=== PATIENT | male | born 1940 | race American Indian/Alaskan Native ===

== ENCOUNTER 2022-01-18 11:27 | Emergency (ER) | payer MEDICARE ==
--- NOTE | 2022-01-18 13:39 | Emergency Department Report ---
HPI - General Chief Complaint: Syncope PUI?: No Time Seen by Provider: 01/18/22 13:32 - HPI HPI: 81-year-old male with a history of dementia, hypertension, hyperlipidemia, brought in by EMS at the request of the patient's daughter for evaluation of syncope. The patient's daughter states that on July 26, 2021, he had the exact same symptoms and was taken to [facility] where he was diagnosed with "seizures." She states that on today, he was with his caregiver. She was not present and did not witness the activities that were shared with her by the caregiver. She states that the caregiver reports that at 9 AM she checked the patient's blood pressure and it was 77/49mmhg. she states that the patient had been at the breakfast table eating his food and then was subsequently given his medications to take. When the patient was given medications, he passed out and became unresponsive and had "gurgling" in his mouth, with no witnessed generalized tonic-clonic seizure movements or any other seizure-like activity. The patient did not patient did not have any fecal or urinary incontinence but in his prior episode on July 26, he had urinary incontinence. Per her report, the aide felt that the patient was not breathing and was advised to start chest compressions by EMS. Chest compressions were not started but EMS personnel arrived and the patient had return to become responsive again and had no rec urrent loss of consciousness. She states that the patient is followed up [facility] [place] and his primary care doctor has put in a referral for the patient to be seen by [facility]'s neurology department. He has a scheduled first-time neurology appointment to evaluate if he has underlying seizures, on January 26, 2022. He is currently taking Keppra 750 mg by mouth twice a day and this was prescribed while he was at [facility] and this medication was not changed or discontinued on follow-up by his primary care doctor. The patient was recently started on sertraline approximately 2 days ago for "behavioral problems." . He also had been seen by a court usher at the [facility] and subsequently had a Holter monitor placed on him in December 2021. She states she received a call from his court usher, , this morning, and was informed that the patient was found to have "2% extra heartbeats" but they did not find any blockages or any life-threatening issues going on." No cough or recent URI symptoms, no changes in mental status, no vomiting or diarrhea. She states that his blood pressure is checked multiple times a day and it is typically "normal." No prior history of hypotension. No recent changes in his blood pressure medication. The patient himself denies any symptoms at this time. Pain 0-10. ED Past Medical Hx - Past Medical History Previous Medical History?: Yes Hx Hypertension: Yes Hx Seizures: Yes Additional medical history: dementia - Social History Smoking Status: Never Smoker Substance Use Type: None ED Review of Systems ROS: Stated complaint: SYNCOPE,BRADYCARDIA Other details as noted in HPI Comment: All other systems reviewed and negative Physical Exam - Physical Exam Vital Signs: Vital Signs 01/18/22 01/18/22 01/18/22 11:30 12:34 12:45 Pulse Rate 74 74 67 Respiratory 22 18 Rate Blood Pressure 180/96 [Left] O2 Sat by Pulse 97 98 Oximetry 01/18/22 01/18/22 01/18/22 13:01 13:15 13:30 Pulse Rate 68 70 Respiratory 17 17 14 Rate Blood Pressure [Left] O2 Sat by Pulse 98 99 98 Oximetry General: Gen: pt is well appearing, no acute distress HEENT: Normocephalic atraumatic pupils equally round and reactive to light extraocular muscles intact sclera anicteric Neck: Full range of motion, no midline spinal tenderness palpation, no JVD, no carotid bruits, no nuchal rigidity CVS: S1-S2 regular rate and rhythm with no gallops rubs or murmurs, chest wall nontender Pulmonary: Clear to auscultation bilaterally, no wheezes rales or rhonchi Abdomen: Soft nondistended nontender no guarding or rebound tenderness, no palpable deformities or step-offs, normal active bowel sounds, no hepatosplenomegaly, no pulsatile masses : Deferred Extremities: No cyanosis no clubbing no edema, intact distal peripheral pulses, Integumentary: Skin normal, no petechia no purpura no abscess no lacerations no evidence of trauma no evidence of infection Neuro: Patient is awake alert and oriented to person place time situation, mentating well, cranial nerves II through XII intact, no focal neurodeficits, sensation grossly tact Psych: Calm cooperative, mood affect normal ED Course Vital Signs 01/18/22 01/18/22 01/18/22 11:30 12:34 12:45 Pulse Rate 74 74 67 Respiratory 22 18 Rate Blood Pressure 180/96 [Left] O2 Sat by Pulse 97 98 Oximetry 01/18/22 01/18/22 01/18/22 13:01 13:15 13:30 Pulse Rate 68 70 Respiratory 17 17 14 Rate Blood Pressure [Left] O2 Sat by Pulse 98 99 98 Oximetry - Reevaluation(s) Reevaluation #1: 01/18/22 20:40 Patient reassessed. He is sitting up in his comfortable and well-appearing. Me ntation remains at baseline. Per family member he has had no recurrent syncope and no witnessed seizure activity. Plan of care for discharge was discussed at length with the patient's daughter ED Medical Decision Making - Lab Data Result diagrams: 01/18/22 13:54 01/18/22 13:54 - EKG Data -: EKG Interpreted by Me EKG shows normal: sinus rhythm - EKG Data When compared to previous EKG there are: previous EKG unavailable Interpretation: nonspecific ST-T wave jasper 01/18/22 13:38 EKG interpreted by me: Ventricular rate 70 bpm. P waves are present and proceed every QRS complex. Intervals normal. No ST segment depressions or elevations. Patient has Q waves in inferior leads and T wave inversions in anterior lateral leads. Specifically the 3 V4 and V5. No ectopy. No arrhythmia. Normal axis. Sinus rhythm. - Radiology Data Radiology results: report reviewed - Medical Decision Making 81-year-old male with multiple medical comorbidities brought in by his daughter for evaluation of syncope. Vital signs stable. Patient is well-appearing here. He was observed extensively in the emergency department for multiple hours and had no evidence of any objective altered sensorium, seizure-like activity, seizure, or postictal state. He remained hemodynamically stable and neurovascular intact. Serum labs reviewed. D-dimer elevated and subsequently CT angio chest was performed to rule out acute pulmonary embolism. CTA negative for acute pathology and other diagnostic imaging negative for any acute pathology as well. Patient had mild orthostasis concerning his vitals being obtained. He was given 1 L of normal saline via peripheral IV. Patient had no evidence of hypotension or bradycardia here or any autonomic dys function necessitating further work-up. Patient has an established court usher, an established neurologist, and established primary care doctor with whom he may continue to follow-up. Therefore I believe that this patient is stable for discharge to home. Prior to discharge his daughter was given strict verbal and written return precautions. She verbalized understanding agreement plan of care. Critical care attestation.: If time is entered above; I have spent that time in minutes in the direct care of this critically ill patient, excluding procedure time. ED Disposition Clinical Impression: Syncope Disposition: HOME / SELF CARE / HOMELESS Is pt being admited?: No Does the pt Need Aspirin: No Condition: Stable Instructions: Syncope (ED) Additional Instructions: Please call your father's doctor in the morning to schedule an immediate follow- up appointment at the [facility]. It is very important that he undergoes reassessment and reevaluation by his doctor soon as possible. Be sure to encourage him to drink plenty of fluids during the day to stay hy drated. Observe his symptoms very carefully. Have him return to the nearest emergency department as soon as possible if he becomes confused or altered, begins vomiting, has dizziness, has recurrent loss of consciousness, complaints of chest pain, or if any other new worrisome symptoms develop Referrals: PRIMARY CARE, [Primary Care Provider] - 3-5 Days
[2022-01-18 14:45] LABS: Alanine Aminotransferase 32 units/L (7-56); Albumin 4.3 g/dL (3.9-5); BUN/Creatinine Ratio 11; Blood Urea Nitrogen 11 mg/dL (9-20); Calcium 9.4 mg/dL (8.4-10.2); Hemolysis Index 61
[2022-01-18 14:50] LABS: Mucus,Urine FEW /HPF
[2022-01-18 15:04] LABS: Color,Urine Yellow (Yellow)
[2022-01-18 15:25] LABS: Hematocrit 46.7 % (35.5-45.6); Hemoglobin 15.1 gm/dl (11.8-15.2); Mean Corpuscular HGB Conc 32 % (32-34); Mean Corpuscular Volume 99 fl (84-94); Platelet Count 118 K/mm3 (140-440); Red Blood Count 4.71 M/mm3 (3.65-5.03); Red Cell Distribution Width 13.9 % (13.2-15.2)
[2022-01-18 16:06] LABS: Basophils % (Manual) 0 % (0.0-1.8); Monocytes % (Manual) 0 % (0.0-7.3); Total Cells Counted 100
[2022-01-18 16:08] LABS: Macrocytosis 1+; Platelet Estimate Appears Decreased
[2022-01-18] MEDS ORDERED: SODIUM CHLORIDE 0.9% 1000 ML 1,000 ML IV ONE (17:42)
[2022-01-18 17:48] VITALS: BP 92/74
--- NOTE | 2022-01-18 20:29 | Cat Scan Report ---
CTA CHEST WITH CONTRAST INDICATION / CLINICAL INFORMATION: elevated ddimer, syncope, r/o PE. TECHNIQUE: Axial CT images were obtained through the chest after injection of 100 cc of Omnipaque 350 IV contrast. 3 plane MIP and/or 3D reconstructions were produced. All CT scans at this location are performed using CT dose reduction for ALARA by means of automated exposure control. COMPARISON: None available. FINDINGS: PULMONARY ARTERIES: No pulmonary emboli. THORACIC AORTA: Mild atherosclerotic calcification without acute abnormality. HEART: No significant abnormality. CORONARY ARTERY CALCIFICATION: Mild. MEDIASTINUM / MIRZA: No significant abnormality. PLEURA: No pleural effusion. No pneumothorax. LUNGS: No acute air space or interstitial disease. ADDITIONAL FINDINGS: None. UPPER ABDOMEN: There are bilateral renal cysts. Atherosclerotic calcifications are noted. SKELETAL STRUCTURES: No significant osseous abnormality. IMPRESSION: 1. No CT evidence for pulmonary embolism. 2. No acute findings. Signer Name: Trell Warner MD Signed: 01/18/2022 8:24 PM Workstation Name: [id number]
--- NOTE | 2022-01-19 10:33 | Electrocardiograph Report ---
[facility] Test Date: 2022-01-18 Test Time: 12:27:55 Pat Name: OCTAVIO BLANCA Department: Room: Gender: M Plasterer Rough: ALISON : 1940 Requested By: ED DOC Order Number: [id number] Reading MD: Charles Hodge Measurements Intervals Arbon Rate: 70 P: 59 HI: 188 QRS: 59 QRSD: 95 T: 211 QT: 381 QTc: 412 Interpretive Statements Sinus rhythm Inferior infarct, age indeterminate Abnrm T, consider ischemia, anterolateral lds No previous ECG available for comparison Electronically Signed On 01-19-2022 10:33:41 EDT by Charles Hodge
== END 2022-01-18 21:13 | disposition home or self-care (01) ==
LOC: ED 11:27
DX: R55 Syncope and collapse (principal); I10 Essential (primary) hypertension
CPT/HCPCS: 36415; 71275; 80053; 81001; 84484; 85007; 85025; 85379; 87086; 93005; 96360; 99284; J7030; Q9967